=== PATIENT | male | born 1995 | race Caucasian/White ===

== ENCOUNTER 2019-04-26 21:01 | Emergency (ER) | payer BC ==
[~2019-04-26] VITALS: Ht 175.3 cm; Wt 104.8 kg
[2019-04-26 21:48] VITALS: BP 129/66
--- NOTE | 2019-04-26 21:55 | NUR ---
PT AMB TO BED 11 STEADY GAIT
--- NOTE | 2019-04-26 22:00 | NUR ---
24 Y/O MALE PRESENTS TO ED, C/O NVD. PT STATES SYMPTOMS STARTED AT 0400 TODAY. PT UNABLE TO TOLERATE FOOD. PT C/O OF ABDOMINAL PAIN 11/24. BS ACTIVE X4 QUADRANTS. PT DENIES TAKING ANY MEDICATIONS FOR PAIN. PT STATES HAVING FEVER PRIOR COMING TO ED; PT AFEBRILE DURING ASSESSMENT. PT VSS. ERMD AWARE. WILL CONTINUE TO MONITOR.
[2019-04-26] MEDS ORDERED: NACL 0.9% 1,000 ML IV ONE (22:05)
[2019-04-26] MEDS ORDERED: KETOROLAC 30 MG/ML VIAL IVP ONE (22:05)
[2019-04-26] MEDS ORDERED: ONDANSETRON 4 MG/2 ML VIAL IVP ONE (22:05)
--- NOTE | 2019-04-26 22:35 | NUR ---
LIFE SKILLS CONSULTANT AT BEDSIDE FOR BLOOD DRAW
[2019-04-26 22:45] LABS: BASOPHILS % (AUTO) 0.2 % (0.0-2.0); EOSINOPHILS % (AUTO) 0.1 % (0.0-4.0); HEMATOCRIT 47.5 % (36-52); HEMOGLOBIN 15.9 g/dL (12.0-18.0); LYMPHOCYTES # (AUTO) 0.3 K/uL (2.0-11.5); MEAN CORPUSCULAR HEMOGLOBIN 30 pg (27-31); MEAN CORPUSCULAR HGB CONC 34 g/dL (33-37); MEAN CORPUSCULAR VOLUME 88.3 fL (80-94); MONOCYTES # (AUTO) 0.5 K/uL (0.8-1.0); MONOCYTES % (AUTO) 5.4 % (1.7-9.3); NEUTROPHILS # (AUTO) 8.9 K/uL (1.8-7.7); PLATELET COUNT (AUTO) 262 K/uL (140-450); RED BLOOD CELL COUNT(AUTO) 5.38 MIL/uL (4.20-6.10); WHITE BLOOD COUNT (AUTO) 9.7 K/uL (4.8-10.8)
[2019-04-26 23:09] LABS: ANION GAP 13.8 (8-16); CREATININE 1.2 mg/dL (0.7-1.3); POTASSIUM 3.8 mmol/L (3.5-5.1)
[2019-04-26] MEDS ORDERED: DOXYCYCLINE 100 MG CAP PO ONE (23:10)
[2019-04-26 23:13] LABS: NEUTROPHILS % (AUTO) 91.3 % (42.2-75.2)
[2019-04-26 23:14] LABS: ALBUMIN 3.7 g/dL (3.4-5.0); TOTAL BILIRUBIN 0.3 mg/dL (0.0-1.0)
--- NOTE | 2019-04-26 23:14 | NUR ---
PT TAKEN TO XRAY
[2019-04-27 00:37] VITALS: BP 129/66
--- NOTE | 2019-04-27 00:37 | NUR ---
PT DISCHARGED WITH PAPERWORK. EDUCATED PT REGARDING MEDICATIONS AND D/C INSTRUCTIONS. PT VERBALIZED UNDERSTANDING OF TEACHING. TOLD PT TO FOLLOW UP WITH PCP AND WHEN TO RETURN TO ED. PT AT STABLE CONDITION. NO N/V NOTED. ALL QUESTIONS ANSWERED.
== END 2019-04-27 00:37 | disposition home or self-care (01) ==
LOC: MED 21:01
DX: K52.9 Noninfective gastroenteritis and colitis, unspecified (principal); L04.9 Acute lymphadenitis, unspecified; R51 Headache
CPT/HCPCS: 36415; 74022; 80053; 85025; 96361; 96374; 96375; 99284; J1885; J2405; J7030

== ENCOUNTER 2019-05-08 21:33 | Inpatient (IN) | payer BC ==
[~2019-05-08] VITALS: Ht 175.3 cm; Wt 106.6 kg
[2019-05-08 21:53] VITALS: BP 132/75
--- NOTE | 2019-05-08 22:04 | NUR ---
PT AMBULATED TO LOBBY
--- NOTE | 2019-05-08 22:40 | NUR ---
PT AMBULATED TO CHD
--- NOTE | 2019-05-08 22:45 | NUR ---
24/M PRESENTS TO ED WITH FAMILY/FRIEND, C/O L GREATER THAN R AXILLARY RASH WITH ERYTHEMA, X2-3 WEEKS. PT DENIES FEVER/CHILLS. PT COMPLETED RX DOXCYCLINE WITHOUT RELIEF. PT AWAKE AND ALERT, SKIN NORMAL COLOR WARM AND DRY, RR EVEN AND UNLABORED. DENIES MED HX OR RX.
[2019-05-08] MEDS ORDERED: VANCOMYCIN 1,000 MG in DEXTROSE 5% 250 ML IV ONE (23:10)
[2019-05-08] MEDS ORDERED: VANCOMYCIN 1,000 MG VIAL ONE (23:29)
[2019-05-08 23:49] LABS: BASOPHILS # (AUTO) 0.1 K/uL (0.00-0.22); BASOPHILS % (AUTO) 0.7 % (0.0-2.0); EOSINOPHILS # (AUTO) 0.4 K/uL (0-0.4); EOSINOPHILS % (AUTO) 2.8 % (0.0-4.0); LYMPHOCYTES # (AUTO) 1.6 K/uL (2.0-11.5); MEAN CORPUSCULAR HEMOGLOBIN 29 pg (27-31); MEAN CORPUSCULAR HGB CONC 33 g/dL (33-37); MEAN CORPUSCULAR VOLUME 87.7 fL (80-94); MONOCYTES % (AUTO) 8.1 % (1.7-9.3); NEUTROPHILS % (AUTO) 76.4 % (42.2-75.2); PLATELET COUNT (AUTO) 326 K/uL (140-450); RED BLOOD CELL COUNT(AUTO) 5.13 MIL/uL (4.20-6.10); RED CELL DISTRIBUTION WIDTH 14.6 % (11.6-13.7)
[2019-05-08 23:58] LABS: APPEARANCE,URINE CLEAR (CLEAR); BILIRUBIN,URINE NEGATIVE (NEGATIVE); BLOOD, URINE NEGATIVE (NEGATIVE); COLOR,URINE YELLOW (YELLOW); LEUKOCYTE ESTERASE ,URINE NEGATIVE (NEGATIVE); NITRITE, URINE NEGATIVE (NEGATIVE); PH,URINE 7.5 (5.0-9.0); UGLUCOSE NEGATIVE (NEGATIVE)
[2019-05-09 00:06] LABS: ALBUMIN 3.6 g/dL (3.4-5.0); ANION GAP 11.9 (8-16); CARBON DIOXIDE 29.9 mmol/L (21-32); CREATININE 1.1 mg/dL (0.7-1.3); POTASSIUM 3.8 mmol/L (3.5-5.1); TOTAL BILIRUBIN 0.3 mg/dL (0.0-1.0)
[2019-05-09] MEDS ORDERED: ACETAMINOPHEN 325 MG TAB PO PRN (00:15)
[2019-05-09] MEDS ORDERED: ONDANSETRON 4 MG/2 ML VIAL IM/IVP PRN (00:15)
[2019-05-09] MEDS ORDERED: HYDROcodone/APAP 5/325 MG 1 TAB TAB PO PRN (00:15)
[2019-05-09] MEDS ORDERED: DOCUSATE SODIUM 100 MG GELCAP PO PRN (00:15)
[2019-05-09] MEDS ORDERED: KETOROLAC 15 MG/ML VIAL IVP PRN (00:40)
[2019-05-09] MEDS ORDERED: CETI-32 PO (00:48)
[2019-05-09 00:55] LABS: BARBITURATE, URINE NEG. ng/ml (NEG <=200); BENZODIAZEPINE, URINE NEG. ng/mL (NEG <=200); CANNABINOID, URINE NEG. ng/mL (NEG <=50); COCAINE, URINE NEG. ng/mL (NEG <=300); OPIATE, URINE NEG. ng/mL (NEG <=2000); PHENCYCLIDINE SCREEN,URINE NEG. ng/mL (NEG <=25)
[2019-05-09 01:04] LABS: PROTHROMBIN TIME 10.4 secs (10.8-13.4)
[2019-05-09 01:05] LABS: MAGNESIUM 2.1 mg/dL (1.8-2.4); PHOSPHORUS 3.3 mg/dL (2.5-4.9); THYROID STIMULATING HORMONE 2.53 uIU/mL (0.34-3.74)
--- NOTE | 2019-05-09 01:05 | NUR ---
PT SITTING IN CHAIR, RR EVEN AND UNLABORED. VS NOTED. ALL NEEDS MET.
--- NOTE | 2019-05-09 01:25 | NUR ---
Patient will be admitted to care of DR BRITTON. Admited to [facility]. Will go to room 111A. Belongings list completed. Report to [facility].
--- NOTE | 2019-05-09 01:30 | NUR ---
RECEIVED PT FROM ER VIA WHEELCHAIR PT IS AAOX4 AMBULATORY WITH BILATERAL AXILLA WITH HYDRADERMATITIS IV ON LEFT AC INFUSING WELL DENIES ANY PAIN ON ADMISSION PT IS ;ORIENTED TOTHE FLOOR CALL LIGHT WITHIN REACH
[2019-05-09 01:40] VITALS: BP 126/75
[2019-05-09] MEDS: NACL 0.9% 1,000 ML IV SCH ×3 (01:50→22:47)
--- NOTE | 2019-05-09 04:00 | NUR ---
PT RESTING ON BED NOT DISTRESS NOTED IV ON LEFT AC INFUSING WELL
[2019-05-09] MEDS ORDERED: CLINDAMYCIN 600 MG/4 ML VIAL ONE (04:25)
[2019-05-09] MEDS: CLINDAMYCIN 300 MG in DEXTROSE 5% 50 ML IV SCH ×4 (05:19→23:33)
--- NOTE | 2019-05-09 06:48 | NUR ---
PT WILL BE ENDORSED TO DAY SHIFT NURSE FOR CONTINUE OF CARE
[2019-05-09 06:58] LABS: BASOPHILS # (AUTO) 0.1 K/uL (0.00-0.22); BASOPHILS % (AUTO) 0.5 % (0.0-2.0); EOSINOPHILS # (AUTO) 0.3 K/uL (0-0.4); HEMATOCRIT 40.6 % (36-52); HEMOGLOBIN 13.5 g/dL (12.0-18.0); LYMPHOCYTES # (AUTO) 1.5 K/uL (2.0-11.5); LYMPHOCYTES % (AUTO) 13.1 % (20.5-51.1); MEAN CORPUSCULAR HEMOGLOBIN 29 pg (27-31); MEAN CORPUSCULAR HGB CONC 33 g/dL (33-37); MEAN CORPUSCULAR VOLUME 87.3 fL (80-94); MONOCYTES % (AUTO) 8.5 % (1.7-9.3); NEUTROPHILS # (AUTO) 8.6 K/uL (1.8-7.7); NEUTROPHILS % (AUTO) 74.9 % (42.2-75.2); PLATELET COUNT (AUTO) 288 K/uL (140-450); RED BLOOD CELL COUNT(AUTO) 4.65 MIL/uL (4.20-6.10); RED CELL DISTRIBUTION WIDTH 14.3 % (11.6-13.7); WHITE BLOOD COUNT (AUTO) 11.5 K/uL (4.8-10.8)
--- NOTE | 2019-05-09 07:25 | NUR ---
RECEIVED BESIDE REPORT FROM NIGHTSHIFT NURSE. PT RESTING IN BED UPON ARRIVAL. ABLE TO MAKE NEEDS KNOWN. SKIN WARM AND DRY TO TOUCH. RESPIRATIONS EVEN AND UNLABORED WITH NO SOB OR RESPIRATORY DISTRESS. IV SITE RFA 24G IS CLEAN, DRY, AND INTACT. SAFETY MEASURES IN PLACE. WILL CONTINUE TO MONITOR
[2019-05-09 07:27] LABS: ANION GAP 12.5 (8-16); CARBON DIOXIDE 26.3 mmol/L (21-32); CREATININE 1.1 mg/dL (0.7-1.3); POTASSIUM 3.8 mmol/L (3.5-5.1)
[2019-05-09 07:44] LABS: PHOSPHORUS 3.7 mg/dL (2.5-4.9)
[2019-05-09 08:00] VITALS: BP 121/68
--- NOTE | 2019-05-09 08:29 | NUR ---
PATIENT HAS BEEN SCREENED AND CATEGORIZED LOW NUTRITION RISK. PATIENT WILL BE SEEN WITHIN 7 DAYS OF ADMISSION. 05/15/[address]
--- NOTE | 2019-05-09 09:01 | NUR ---
DISCHARGE PLANNING: CONTACTED RICCI BUCKNER OF [facility] AT [phone] REGARDING PATIENT'S CONDITION. SHE STATED THIS IS AN OUT OF NETWORK MEMBER, IF PATIENT WILL BE DISCHARGE IN A DAY, THEN NO NEED TO TRANSFER TO A CONTRACTED FACILITY. DR. CRUM MADE AWARE. Addendum: 05/09/19 at 1449 by Melissa Mathews DISCUSSED RESULTS OF AXILLA U/S TO DR. CRUM, HE STATED HE RELAYED THE RESULTS TO DR. CALVERT AND WAITING FOR HIS REPLY. IF NO SURGERY NEEDED, WILL DC PATIENT LATER THIS AFTERNOON OR TOMORROW MORNING. CONTACTED SITA OF [facility], INFORMED HER OF THE PLAN. SHE STATED THAT TOMORROW MORNING IS FINE IF NOT THEN SHE CAN ARRANGE TRANSFER TO CONTRACTED FACILITY. SHE ALSO STATED THAT [facility] IS FULL OF THE MOMENT. Addendum: 05/10/19 at 0904 by Melissa Mathews SPOKE TO DR. HERRERA REGARDING PLAN FOR THIS PATIENT. HE STATED PATIENT IS SCHEDULED FOR I&D WITH DR. CALVERT TODAY. PER PRIMARY MANJULA CROCKETT, PATIENT IS SCHEDULED AT 1230. CONTACTED [facility] AND MADE AWARE OF THE PLAN. SHE STATED "IT'S OK, THERE ARE NO BEDS AVAILABLE AT [facility]. JUST KEEP UPDATING ME WHAT WILL BE THE PLAN POST I&D." DR. HERRERA MADE AWARE. Addendum: 05/10/19 at 1437 by Melissa Mathews CM PER PRIMARY MANJULA CROCKETT, PATIENT IS NOT BACK YET FROM OR. [facility] UPDATED. Addendum: 05/10/19 at 1559 by Melissa Mathews CM PER DR AGARWAL, PATIENT WILL BE DISCHARGING TODAY WITH [facility] AND FOLLOW UP WITH [facility] ON MONDAY. RICCI BUCKNER MADE AWARE. Addendum: 05/10/19 at 1601 by Melissa Mathews CM LATE ENTRY FOR THIS MORNING: POST STABILIZATION FORM SENT TO [facility] THIS MORNING.
[2019-05-09] MEDS: LACTOBACILLUS RHAMNOSUS GG 1 EACH CAP PO SCH (09:28)
[2019-05-09] MEDS: RIFAMPIN 300 MG CAP PO SCH ×2 (09:28→22:43)
--- NOTE | 2019-05-09 09:28 | NUR ---
ADMINISTERED SCHED MED PRESCRIBED PER MD ORDER. PT TOLERATED WELL. MEDICATION EDUCATION PERFORMED. PT VERBALIZED UNDERSTANDING.
--- NOTE | 2019-05-09 11:04 | NUR ---
HOURLY ROUNDING. PT RESTING IN BED UPON ARRIVAL. ABLE TO MAKE NEEDS KNOWN. SKIN WARM AND DRY TO TOUCH. RESPIRATIONS EVEN AND UNLABORED WITH NO SOB OR RESPIRATORY DISTRESS. SAFETY MEASURES IN PLACE. WILL CONTINUE TO MONITOR.
--- NOTE | 2019-05-09 11:13 | NUR ---
Apparel Designer Note: Basic Screen: Yes High Risk DC Screen Tower: NEERAJ MURPHY [place] Relationship: FATHER Pre-Admission Living Arrangements: Lives with Other Prior ADL Independent Current Home Health Name/Tel: N/A Current DME/02 Name/Tel: N/A Current Hospice Name/Tel: N/A Current Dialysis Name/Tel: N/A Healthcare Decision Maker: Patient Advance Directive No - REFUSED Physician Orders for Life Sustaining Treatment Form No Information Taught: Advance Directive Person Taught: Patient Teaching Tools: Verbal Factors Affecting Learning: None Participation Level: Refused Evaluation: Verbalizes Understanding Needs Additional Education: No Discipline: Case Mgt/Social Svcs Tentative Discharge Plan/Destination: No Needs Identified Will require assistance post discharge: No Referred to Fish Dressing Machine Feeder: No Tentative Discharge Plan Summary: Patient is a 24-year-old male admitted for axillary hidradermitis. Patient has no significant PMHX. Patient was admitted from home where he lives with father and stepmother. SW met with patient at bedside to verify demogaphics. Patient reported no history of substance abuse and no history of mental health. Patient's tentative discharge plan is to return home. No further needs identified. Signature: BRYN Flores Date: May 09, 2019 Time: 11:12
--- NOTE | 2019-05-09 12:50 | NUR ---
ADMINISTERED SCHED MED PRESCRIBED PER MD ORDER. PT TOLERATED WELL. MEDICATION EDUCATION PERFORMED. PT VERBALIZE UNDERSTANDING. WILL CONTINUE TO MONITOR
--- NOTE | 2019-05-09 13:37 | NUR ---
PT RESTING IN BED UPON ARRIVAL. ABLE TO MAKE NEEDS KNOWN. NO COMPLAINTS OR CONCERNS AT THIS TIME. SKIN WARM AND DRY TO TOUCH. RESPIRATIONS EVEN AND UNLABORED WITH NO SOB OR RESPIRATORY DISTRESS. SAFETY MEASURES IN PLACE. WILL CONTINUE TO MONITOR.
--- NOTE | 2019-05-09 14:30 | NUR ---
PT ASLEEP IN BED UPON ARRIVAL. RESPONSIVE TO VERBAL AND TACTILE STIMULI. ABLE TO MAKE NEEDS KNOWN. SKIN WARM AND DRY TO TOUCH. RESPIRATIONS EVEN AND UNLABORED WITH NO SOB OR RESPIRATORY DISTRESS. SAFETY MEASURES IN PLACE. WILL CONTINUE TO MONITOR.
[2019-05-09 16:00] VITALS: BP 122/73
--- NOTE | 2019-05-09 16:15 | NUR ---
HOURLY ROUNDING. FAMILY AT BEDSIDE. PT RESTING IN BED UPON ARRIVAL. ABLE TO MAKE NEEDS KNOWN. SKIN WARM AND DRY TO TOUCH. RESPIRATIONS EVEN AND UNLABORED WITH NO SOB OR RESPIRATORY DISTRESS. SAFETY MEASURES IN PLACE. WILL CONTINUE TO MONITOR.
--- NOTE | 2019-05-09 17:04 | NUR ---
ADMINISTERED IVF PRESCRIBED PER MD ORDER. PT TOLERATED WELL. MEDICATION EDUCATION PERFORMED. PT VERBALIZED UNDERSTANDING. SAFETY MEASURES IN PLACE
--- NOTE | 2019-05-09 18:00 | NUR ---
ADMINISTERED SCHED MED PRESCRIBED PER MD ORDER. PT TOLERATED WELL. MEDICATION EDUCATION PERFORMED. PT VERBALIZE UNDERSTANDING. WILL CONTINUE TO MONITOR
--- NOTE | 2019-05-09 19:20 | NUR ---
ENDORSED TO NIGHTSHIFT AT BEDSIDE. PT RESTING IN BED UPON ARRIVAL. ABLE TO MAKE NEEDS KNOWN. SKIN WARM AND DRY TO TOUCH. RESPIRATIONS EVEN AND UNLABORED WITH NO SOB OR RESPIRATORY DISTRESS. SAFETY MEASURES IN PLACE. PT IS STABLE.
--- NOTE | 2019-05-09 19:25 | NUR ---
RECEIVED PT FROM [facility] PT IS AAOX4 AMBULATORY IV ON LEFT AC, NOT SIGNS OF PAIN RELATIVES AT BED SIDE, DR GUZMAN IS HERE AND SEE THE PT INITIAL ASSESSMENT DONE
--- NOTE | 2019-05-09 23:00 | NUR ---
PT ALREADY SINGED CONSENT FOR INCISION AND DRAINAGE OF RT AND LEFT AXILLA ABSCESS
[2019-05-10] VITALS: BP 116/64
--- NOTE | 2019-05-10 00:52 | NUR ---
PT NPO POST MN AND GETTING SLEEP
--- NOTE | 2019-05-10 04:00 | NUR ---
PT SLEEPING WELL NOT DISTRESS NOTED
[2019-05-10 04:55] LABS: BASOPHILS # (AUTO) 0.1 K/uL (0.00-0.22); BASOPHILS % (AUTO) 0.7 % (0.0-2.0); EOSINOPHILS # (AUTO) 0.4 K/uL (0-0.4); EOSINOPHILS % (AUTO) 3.3 % (0.0-4.0); HEMATOCRIT 43.8 % (36-52); HEMOGLOBIN 14.4 g/dL (12.0-18.0); LYMPHOCYTES # (AUTO) 1.9 K/uL (2.0-11.5); LYMPHOCYTES % (AUTO) 16.2 % (20.5-51.1); MEAN CORPUSCULAR HEMOGLOBIN 29 pg (27-31); MEAN CORPUSCULAR HGB CONC 33 g/dL (33-37); MEAN CORPUSCULAR VOLUME 87.4 fL (80-94); MONOCYTES # (AUTO) 1.1 K/uL (0.8-1.0); MONOCYTES % (AUTO) 9.4 % (1.7-9.3); NEUTROPHILS # (AUTO) 8.1 K/uL (1.8-7.7); NEUTROPHILS % (AUTO) 70.4 % (42.2-75.2); PLATELET COUNT (AUTO) 333 K/uL (140-450); RED BLOOD CELL COUNT(AUTO) 5.01 MIL/uL (4.20-6.10); RED CELL DISTRIBUTION WIDTH 14.3 % (11.6-13.7); WHITE BLOOD COUNT (AUTO) 11.6 K/uL (4.8-10.8)
[2019-05-10 05:32] LABS: ANION GAP 12.4 (8-16); CARBON DIOXIDE 28.7 mmol/L (21-32); POTASSIUM 4.1 mmol/L (3.5-5.1)
[2019-05-10] MEDS: CLINDAMYCIN 300 MG in DEXTROSE 5% 50 ML IV SCH ×2 (05:34→12:10)
[2019-05-10 05:35] LABS: PHOSPHORUS 4.2 mg/dL (2.5-4.9)
--- NOTE | 2019-05-10 07:00 | NUR ---
SURGICAL CHECK LIST, CONSENT AND TICKET TO RIDE READY FOR INCISION AND DRAINAGE OF BOTH AXILLAS TODAY
--- NOTE | 2019-05-10 07:05 | NUR ---
RECEIVED BEDSIDE REPORT FROM NIGHTSHIFT NURSE. PT RESTING IN BED UPON ARRIVAL. ABLE TO MAKE NEEDS KNOWN. RESPIRATIONS EVEN AND UNLABORED WITH NO SOB OR RESPIRATORY DISTRESS. SKIN WARM AND DRY TO TOUCH. IV SITE IN LAC 20G IS CLEAN, DRY, AND INTACT. SAFETY MEASURES IN PLACE. WILL CONTINUE TO MONITOR
[2019-05-10 08:00] VITALS: BP 118/69
[2019-05-10] MEDS: LACTOBACILLUS RHAMNOSUS GG 1 EACH CAP PO SCH (08:39)
[2019-05-10] MEDS: RIFAMPIN 300 MG CAP PO SCH (08:39)
--- NOTE | 2019-05-10 08:41 | NUR ---
ADMINISTERED SCHED MED PRESCRIBED PER MD ORDER. PT TOLERATED WELL. MEDICATION EDUCATION PERFORMED. PT VERBALIZED UNDERSTANDING. SAFETY MEASURES IN PLACE. WILL CONTINUE TO MONITOR
--- NOTE | 2019-05-10 10:35 | NUR ---
PT ASLEEP IN BED. RESPONSIVE TO VERBAL AND TACTILE STIMULI. ABLE TO MAKE NEEDS KNOWN. RESPIRATIONS EVEN AND UNLABORED WITH NO SOB OR RESPIRATORY DISTRESS. SKIN WARM AND DRY TO TOUCH. SAFETY MEASURES IN PLACE. WILL CONTINUE TO MONITOR
[2019-05-10 12:00] VITALS: BP 100/68
--- NOTE | 2019-05-10 12:11 | NUR ---
ADMINISTERED SCHED MED PRESCRIBED PER MD ORDER. PT TOLERATED WELL. MEDICATION EDUCATION PERFORMED. PT VERBALIZED UNDERSTANDING. SAFETY MEASURES IN PLACE. WILL CONTINUE TO MONITOR
--- NOTE | 2019-05-10 13:15 | NUR ---
PT PICKED UP AND TAKEN TO OR FOR I&D FOR HIS AXILLARY ABSCESSES
[2019-05-10] MEDS ORDERED: LIDOCAINE 1% 500 MG/50 ML VIAL ONE (13:25)
[2019-05-10] MEDS ORDERED: BUPIVACAINE-MPF/EPI 0.25% 30 ML VIAL INJ ONE (13:25)
[2019-05-10] MEDS ORDERED: ONDANSETRON 4 MG/2 ML VIAL ONE (13:28)
[2019-05-10] MEDS ORDERED: DESFLURANE 240 ML BTL INH ONE (13:28)
[2019-05-10] MEDS ORDERED: fentaNYL 0.05 MG/ML VIAL ONE (13:28)
[2019-05-10] MEDS ORDERED: KETOROLAC 30 MG/ML VIAL ONE (13:28)
[2019-05-10] MEDS ORDERED: PROPOFOL 200 MG/20 ML VIAL IV ONE (13:28)
[2019-05-10] MEDS ORDERED: DEXAMETHASONE 4 MG/ML VIAL ONE (13:28)
[2019-05-10] MEDS ORDERED: HYDROmorphone 1 MG/ML AMP IVP PRN (14:00)
[2019-05-10] MEDS ORDERED: ONDANSETRON 4 MG/2 ML VIAL IVP PRN (14:00)
--- NOTE | 2019-05-10 14:50 | NUR ---
PT RETURNED FROM OR. REPORT GIVEN FROM OR NURSE. PT RESTING IN BED WITH FAMILY AT BEDSIDE. ABLE TO MAKE NEEDS KNOWN. RESPIRATIONS EVEN AND UNLABORED WITH NO SOB OR RESPIRATORY DISTRESS. SKIN WARM AND DRY TO TOUCH. SAFETY MEASURES IN PLACE. WILL CONTINUE TO MONITOR
[2019-05-10] MEDS ORDERED: CLIN300C2 PO (15:25)
[2019-05-10] MEDS ORDERED: RIFA300C6 PO (15:25)
--- NOTE | 2019-05-10 15:45 | NUR ---
PT HAS DC ORDER AND WAS MADE AWARE. PT PREFERRED TO LEAVE AROUND 1700. WILL CONTINUE TO MONITOR
--- NOTE | 2019-05-10 17:15 | NUR ---
PT RESTING IN BED UPON ARRIVAL. ABLE TO MAKE NEEDS KNOWN. RESPIRATIONS EVEN AND UNLABORED WITH NO SOB OR RESPIRATORY DISTRESS. SKIN WARM AND DRY TO TOUCH. SAFETY MEASURES IN PLACE. WILL CONTINUE TO MONITOR
[2019-05-10 17:33] VITALS: BP 123/60
--- NOTE | 2019-05-10 18:00 | NUR ---
WENT OVER DC INSTRUCTIONS WITH PT. PT SIGNED APPROPRIATE FORMS. EDUCATED PT TO VISIT ED FOR ANY SIGNS OF DISTRESS. ID BAND, ALLERGY BAND, AND INTACT IV CANNULA REMOVED. PT CHANGED INTO OWN GOWN AND GATHERED HIS BELONGINGS. PT IS GOING HOME WITH FATHER NEERAJ IN HIS PRIVATE VEHICLE. PT IS STABLE
== END 2019-05-10 18:00 | disposition home or self-care (01) | DRG 603 ==
LOC: MED 21:33 → MTU 05-09 00:19
PROVIDERS: ADMIT General Practice; ATTEND General Practice
PROC: 0X940ZZ Drainage of Right Axilla, Open Approach (ICD-10-PCS; 2019-05-10)
PROC: 0X950ZZ Drainage of Left Axilla, Open Approach (ICD-10-PCS; principal; 2019-05-10 12:30)
DX: L02.412 Cutaneous abscess of left axilla (principal); L73.2 Hidradenitis suppurativa; L02.411 Cutaneous abscess of right axilla; I10 Essential (primary) hypertension; F43.9 Reaction to severe stress, unspecified
CPT/HCPCS: 36415; 71045; 76881; 80048; 80053; 80305; 81003; 83036; 83605; 83735; 83880; 84100; 84134; 84443; 85025; 85610; 85730; 87040; 87081; 87086; 93005; 96365; 96366; 99285; G0482; J1100; J1885; J2001; J2405; J2704; J3010; J3370; J3490; J7030; J7060; Q0092